=== PATIENT | female | born 1965 | race Caucasian/White ===

== ENCOUNTER → 2016-07-31 | Outpatient (CLI) | payer OTHER ==
[~2016-07-31] MED LIST: CETIRIZINE; ESTRACE 1MG1 MG/TAB PO; FLEXERIL5 MG PO; MOTRIN 200200 MG/TAB PO; MULTIPLE VITAMI1 CAP PO; NORCO 325 MG-51 TAB PO; PHENERGAN W/CO120 M1 PO; PREMARIN PO; PROAIR HFA0.09 MG/AC IH; RT ADVAIR 228 DISKUS IH; VITAMIN C500 MG PO; VITAMIN D1000 IU PO; ZYRTEC 10MG10 MG PO
== END ==
LOC: COL.PUL 07-16 08:00
DX: R05 Cough (principal)
CPT/HCPCS: J7674